=== PATIENT | male | born 1960 | race Caucasian/White ===

== ENCOUNTER 2018-04-04 10:13 | Emergency (ER) | payer OTHER ==
[~2018-04-04] VITALS: Ht 180.3 cm; Wt 95.3 kg
[~2018-04-04 10:13] MED LIST: CIPRO500 MG PO; FLOMAX0.4 MG PO; LAC PO
[2018-04-04 10:18] VITALS: BP 147/93; Ht 180.3 cm; Wt 95.3 kg
== END 2018-04-04 11:43 | disposition home or self-care (01) ==
LOC: ED 10:13
DX: L03.115 Cellulitis of right lower limb (principal); I10 Essential (primary) hypertension; E78.00 Pure hypercholesterolemia, unspecified; K21.9 Gastro-esophageal reflux disease without esophagitis; F17.210 Nicotine dependence, cigarettes, uncomplicated; S39.012A Strain of muscle, fascia and tendon of lower back, initial encounter; X50.0XXA Overexertion from strenuous movement or load, initial encounter; Y93.89 Activity, other specified; Y92.89 Other specified places as the place of occurrence of the external cause; Y99.8 Other external cause status